=== PATIENT | male | born 1965 | race Caucasian/White ===

== ENCOUNTER 2021-03-23 03:18 | Emergency (ER) | payer OTHER ==
[2021-03-23 03:26] VITALS: RESP 18
[2021-03-23] MEDS ORDERED: HYDROmorphone 0.5 MG/0.5 ML SYRINGE IVP STA ×2 (03:52→06:42)
[2021-03-23] MEDS ORDERED: KETOROLAC 15 MG/ML 1 ML VIAL IVP STA (03:52)
[2021-03-23] MEDS ORDERED: ONDANSETRON 4 MG/2 ML VIAL IVP STA (03:52)
--- NOTE | 2021-03-23 03:54 | ED ---
Abdominal Pain HPI - General Chief Complaint: Abdominal Pain Stated Complaint: Abdominal pain Time Seen by Provider: 03/23/21 03:28 Source: patient Mode of arrival: ambulatory Limitations: no limitations - History of Present Illness MD Complaint: flank pain Onset/Timin -: hour(s) Location: R flank Radiation: RLQ Migration to: no migration Severity: severe Quality: sharp Consistency: colicky Improves With: nothing Worsens With: nothing Associated Symptoms: nausea, vomiting - Related Data Home Medications Medication Instructions Recorded Confirmed Ranitidine HCl [Zantac] 150 mg PO BID 10/29/15 11/20/15 Synthroid Unknown Dose 1 tab PO QAM 10/29/15 11/20/15 Loratadine [Claritin] 10 mg PO BID 11/17/15 11/20/15 Previous Rx's Medication Instructions Recorded HYDROcodone/APAP 5-325MG [Dixie 1 tab PO Q4HR PRN 3 Days #18 tab 03/23/21 5-325] Ondansetron Odt [Zofran ODT] 4 mg PO Q8HR PRN #10 tab 03/23/21 Tamsulosin [Flomax] 0.4 mg PO DAILY #14 cap 03/23/21 Allergies Allergy/AdvReac Type Severity Reaction Status Date / Time Milk Containing Products Allergy night Verified 03/23/21 03:26 sweats,runny nose and watery eyes monosodium glutamate Allergy runny nose Verified 03/23/21 03:26 and watery eyes Penicillins Allergy Unknown Verified 03/23/21 03:26 Review of Systems ROS Statement: Those systems with pertinent positive or pertinent negative responses have been documented in the HPI. ROS Other: All systems not noted in ROS Statement are negative. Constitutional: Denies: fever, chills Respiratory: Denies: cough, dyspnea Cardiovascular: Denies: chest pain, palpitations, edema Gastrointestinal: Reports: abdominal pain, nausea, vomiting. Denies: diarrhea, constipation, melena, hematochezia Genitourinary: Reports: frequency. Denies: urgency, dysuria, hematuria, testicular pain, testicular mass Musculoskeletal: Denies: back pain Skin: Denies: rash Neurological: Denies: headache, weakness, numbness Past Medical History Past Medical History: GERD/Reflux, Hyperlipidemia, Thyroid Disorder Additional Past Medical History / Comment(s): currently having difficulty on food and choking on piece of chicken causing bleeding and going into ER, seasonal allergies,kidney stones History of Any Multi-Drug Resistant Organisms: None Reported Past Surgical History: No Surgical Hx Reported Additional Past Surgical History / Comment(s): piece of steak removed from throat Additional Past Anesthesia/Blood Transfusion Reaction / Comment(s): never has had anesthesia Past Psychological History: No Psychological Hx Reported Smoking Status: Never smoker Past Alcohol Use History: None Reported Past Drug Use History: None Reported - Past Family History Father Additional Family Medical History / Comment(s): states "chokes on food too ,narrow throats run in the family" Mother Family Medical History: No Reported History Brother(s) Additional Family Medical History / Comment(s): "narrow throat too,but not as bad" General Exam Limitations: no limitations General appearance: alert, in no apparent distress Head exam: Present: atraumatic, normocephalic Eye exam: Present: normal appearance. Absent: scleral icterus, conjunctival injection Respiratory exam: Present: normal lung sounds bilaterally. Absent: respiratory distress, wheezes, rales, rhonchi, stridor Cardiovascular Exam: Present: regular rate, normal rhythm, normal heart sounds. Absent: systolic murmur, diastolic murmur, rubs, gallop GI/Abdominal exam: Present: soft. Absent: distended, tenderness, guarding, rebound, rigid, mass Extremities exam: Present: normal inspection, normal capillary refill. Absent: pedal edema, calf tenderness Back exam: Present: normal inspection. Absent: CVA tenderness (R), CVA tenderness (L) Neurological exam: Present: alert Skin exam: Present: warm, dry, intact, normal color. Absent: rash Course Vital Signs 03/23/21 03/23/21 03/23/21 03:22 03:25 07:02 Temperature 97.7 F 98.3 F Pulse Rate 122 H 74 Respiratory 18 18 Rate Blood Pressure 173/80 142/72 O2 Sat by Pulse 95 98 Oximetry Medical Decision Making - Lab Data Result diagrams: 03/23/21 04:10 03/23/21 04:10 Lab Results 03/23/21 03/23/21 03/23/21 Range/Units 04:10 04:10 04:10 WBC 7.8 (3.8-10.6) k/uL RBC 4.89 (4.30-5.90) m/uL Hgb 14.7 (13.0-17.5) gm/dL Hct 43.2 (39.0-53.0) % MCV 88.3 (80.0-100.0) fL MCH 30.1 (25.0-35.0) pg MCHC 34.1 (31.0-37.0) g/dL RDW 12.3 (11.5-15.5) % Plt Count 251 (150-450) k/uL MPV 7.9 Neutrophils % 73 % Lymphocytes % 17 % Monocytes % 6 % Eosinophils % 2 % Basophils % 1 % Neutrophils # 5.7 (1.3-7.7) k/uL Lymphocytes # 1.3 (1.0-4.8) k/uL Monocytes # 0.5 (0-1.0) k/uL Eosinophils # 0.2 (0-0.7) k/uL Basophils # 0.1 (0-0.2) k/uL Sodium 138 (137-145) mmol/L Potassium 3.8 (3.5-5.1) mmol/L Chloride 105 (98-107) mmol/L Carbon Dioxide 23 (22-30) mmol/L Anion Gap 10 mmol/L BUN 17 (9-20) mg/dL Creatinine 1.17 (0.66-1.25) mg/dL Est GFR (CKD-EPI)AfAm 80 (>60 ml/min/1.73 sqM) Est GFR (CKD-EPI)NonAf 69 (>60 ml/min/1.73 sqM) Glucose 174 H (74-99) mg/dL Plasma Lactic Acid Augusto (0.7-2.0) mmol/L Calcium 9.4 (8.4-10.2) mg/dL Total Bilirubin 0.5 (0.2-1.3) mg/dL AST 33 (17-59) U/L ALT 31 (4-49) U/L Alkaline Phosphatase 119 (38-126) U/L Total Protein 7.7 (6.3-8.2) g/dL Albumin 4.3 (3.5-5.0) g/dL Amylase 55 (30-110) U/L Lipase 89 (23-300) U/L Urine Color Yellow Urine Appearance Cloudy (Clear) Urine pH 5.0 (5.0-8.0) Ur Specific [place] 1.035 (1.001-1.035) Urine Protein 1+ H (Negative) Urine Glucose (UA) Negative (Negative) Urine Ketones Negative (Negative) Urine Blood Large H (Negative) Urine Nitrite Negative (Negative) Urine Bilirubin Negative (Negative) Urine Urobilinogen 2.0 (<2.0) mg/dL Ur Leukocyte Esterase Negative (Negative) Urine RBC 78 H (0-5) /hpf Urine WBC 3 (0-5) /hpf Ur Squamous Epith Cells 1 (0-4) /hpf Calcium Oxalate Crystal Many H (None) /hpf Urine Bacteria Rare H (None) /hpf Urine Mucus Many H (None) /hpf 03/23/21 Range/Units 04:10 WBC (3.8-10.6) k/uL RBC (4.30-5.90) m/uL Hgb (13.0-17.5) gm/dL Hct (39.0-53.0) % MCV (80.0-100.0) fL MCH (25.0-35.0) pg MCHC (31.0-37.0) g/dL RDW (11.5-15.5) % Plt Count (150-450) k/uL MPV Neutrophils % % Lymphocytes % % Monocytes % % Eosinophils % % Basophils % % Neutrophils # (1.3-7.7) k/uL Lymphocytes # (1.0-4.8) k/uL Monocytes # (0-1.0) k/uL Eosinophils # (0-0.7) k/uL Basophils # (0-0.2) k/uL Sodium (137-145) mmol/L Potassium (3.5-5.1) mmol/L Chloride (98-107) mmol/L Carbon Dioxide (22-30) mmol/L Anion Gap mmol/L BUN (9-20) mg/dL Creatinine (0.66-1.25) mg/dL Est GFR (CKD-EPI)AfAm (>60 ml/min/1.73 sqM) Est GFR (CKD-EPI)NonAf (>60 ml/min/1.73 sqM) Glucose (74-99) mg/dL Plasma Lactic Acid Augusto 2.0 (0.7-2.0) mmol/L Calcium (8.4-10.2) mg/dL Total Bilirubin (0.2-1.3) mg/dL AST (17-59) U/L ALT (4-49) U/L Alkaline Phosphatase (38-126) U/L Total Protein (6.3-8.2) g/dL Albumin (3.5-5.0) g/dL Amylase (30-110) U/L Lipase (23-300) U/L Urine Color Urine Appearance (Clear) Urine pH (5.0-8.0) Ur Specific [place] (1.001-1.035) Urine Protein (Negative) Urine Glucose (UA) (Negative) Urine Ketones (Negative) Urine Blood (Negative) Urine Nitrite (Negative) Urine Bilirubin (Negative) Urine Urobilinogen (<2.0) mg/dL Ur Leukocyte Esterase (Negative) Urine RBC (0-5) /hpf Urine WBC (0-5) /hpf Ur Squamous Epith Cells (0-4) /hpf Calcium Oxalate Crystal (None) /hpf Urine Bacteria (None) /hpf Urine Mucus (None) /hpf Disposition Clinical Impression: Kidney stone Disposition: HOME SELF-CARE Condition: Good Instructions (If sedation given, give patient instructions): Kidney Stones (ED) Prescriptions: Tamsulosin [Flomax] 0.4 mg PO DAILY #14 cap HYDROcodone/APAP 5-325MG [Dixie 5-325] 1 tab PO Q4HR PRN 3 Days #18 tab PRN Reason: Pain Ondansetron Odt [Zofran ODT] 4 mg PO Q8HR PRN #10 tab PRN Reason: Nausea Is patient prescribed a controlled substance at d/c from ED?: Yes Referrals: Vitaliy Bach MD [Primary Care Provider] - 1-2 days
[2021-03-23 04:27] LABS: Basophils # (A) 0.1 k/uL (0-0.2); Basophils % (A) 1 %; Eosinophils # (A) 0.2 k/uL (0-0.7); Eosinophils % (A) 2 %; HCT 43.2 % (39.0-53.0); HGB 14.7 gm/dL (13.0-17.5); Lymphocytes # (A) 1.3 k/uL (1.0-4.8); Lymphocytes % (A) 17 %; MCH 30.1 pg (25.0-35.0); MCHC 34.1 g/dL (31.0-37.0); MCV 88.3 fL (80.0-100.0); Mean Platelet Volume 7.9; Monocytes # (A) 0.5 k/uL (0-1.0); Monocytes % (A) 6 %; Neutrophils # (A) 5.7 k/uL (1.3-7.7); Neutrophils % (A) 73 %; Platelet Count 251 k/uL (150-450); RBC 4.89 m/uL (4.30-5.90); RDW 12.3 % (11.5-15.5); WBC 7.8 k/uL (3.8-10.6)
[2021-03-23 04:38] LABS: Albumin 4.3 g/dL (3.5-5.0); Calcium 9.4 mg/dL (8.4-10.2); Potassium 3.8 mmol/L (3.5-5.1); Total Bilirubin 0.5 mg/dL (0.2-1.3); Total Protein 7.7 g/dL (6.3-8.2)
[2021-03-23 04:45] LABS: Appearance,Urine Cloudy (Clear); Bacteria,Urine Rare /hpf; Bilirubin,Urine Negative (Negative); Blood,Urine Large (Negative); Calcium Oxalate Crystals,Urine Many /hpf; Color,Urine Yellow; Glucose,Urine (UA) Negative (Negative); Ketones,Urine Negative (Negative); Leukocyte Esterase,Urine Negative (Negative); Mucus,Urine Many /hpf; Nitrite,Urine Negative (Negative); Protein,Urine 1+ (Negative); RBC,Urine 78 /hpf (0-5); Specific Gravity,Urine 1.035 (1.001-1.035); Squamous Epithelial Cell,Urine 1 /hpf (0-4); WBC,Urine 3 /hpf (0-5)
--- NOTE | 2021-03-23 06:21 | CT ---
EXAMINATION TYPE: CT abdomen pelvis wo con DATE OF EXAM: 03/23/2021 COMPARISON: None HISTORY: right flank pain. known sharpnel in stomache from prev. injury CT DLP: 898.9 mGycm Automated exposure control for dose reduction was used. Lung bases are clear of consolidation. There is mild subsegmental atelectasis at the lung bases. Ther e is no pleural effusion. There is no pericardial effusion. Heart size is fairly normal. Liver spleen stomach pancreas appear intact. Bile ducts are not dilated. Gallbladder appears normal. There is no adrenal mass. Kidneys have normal size. There is bilateral hydronephrosis. This is more o n the right side. There is right-sided perinephric edema. There is mild right-sided hydroureter with 2 mm calculus at the ureterovesical junction. Left ureter is not dilated. There is no retroperitoneal adenopathy. Appendix is not clearly seen. There is no sign of thickened appendix. Bladder distends s moothly. There is no inguinal hernia. There is no free fluid in the pelvis. There are multiple large bowel diverticula. There is no diverticulitis. There is 3.8 cm cortical cyst lower pole right kidney. Lumbar vertebra have normal alignment. There i s no compression fracture. Posterior elements are intact. The bony pelvis is intact. The hip joints a re intact. IMPRESSION: Tiny obstructing calculus at the right ureterovesical junction with right-sided hydronephrosis and hy droureter. Appendix not seen. Sigmoid diverticulosis.
[2021-03-23 07:04] VITALS: BP 142/72; PULSE 74; TEMP 98.3
[2021-03-23] MEDS ORDERED: TAMSULOSIN 0.4 MG CAP.ER.24H PO STA (07:09)
== END 2021-03-23 07:47 | disposition home or self-care (01) ==
LOC: EC 03:18
DX: N20.0 Calculus of kidney (principal); K21.9 Gastro-esophageal reflux disease without esophagitis; E78.5 Hyperlipidemia, unspecified; E07.9 Disorder of thyroid, unspecified; Z88.0 Allergy status to penicillin
CPT/HCPCS: 36415; 74176; 80053; 81001; 82150; 83605; 83690; 85025; 96374; 96375; 96376; 99284

== ENCOUNTER → 2021-07-07 | Outpatient (CLI) | payer BC ==
[2021-07-07 11:27] LABS: Basophils # (A) 0.1 k/uL (0-0.2); Basophils % (A) 1 %; Eosinophils # (A) 0.5 k/uL (0-0.7); Eosinophils % (A) 8 %; HCT 41.2 % (39.0-53.0); HGB 14.2 gm/dL (13.0-17.5); Lymphocytes # (A) 2.9 k/uL (1.0-4.8); Lymphocytes % (A) 42 %; MCH 31.4 pg (25.0-35.0); MCHC 34.5 g/dL (31.0-37.0); Mean Platelet Volume 7.5; Monocytes # (A) 0.3 k/uL (0-1.0); Monocytes % (A) 4 %; Neutrophils # (A) 3.1 k/uL (1.3-7.7); Neutrophils % (A) 45 %; Platelet Count 266 k/uL (150-450); RBC 4.53 m/uL (4.30-5.90); RDW 12.4 % (11.5-15.5); WBC 6.9 k/uL (3.8-10.6)
[2021-07-07 11:36] LABS: Potassium 4.1 mmol/L (3.5-5.1)
== END | disposition home or self-care (01) ==
LOC: LABPAT 10:58
PROVIDERS: ATTEND Surgery
DX: Z01.812 Encounter for preprocedural laboratory examination (principal); I65.29 Occlusion and stenosis of unspecified carotid artery
CPT/HCPCS: 36415; 80051; 82565; 84520; 85025

== ENCOUNTER 2021-07-10 05:44 | Inpatient (IN) | payer BC, OTHER ==
[2021-07-09 09:19] VITALS: BMI 32.6
[~2021-07-10 05:44] MED LIST: LIDOCAINE 1% (10MG/ML) FOR IV START INTRADERMA PRN; ONDANSETRON 4 MG/2 ML VIAL IVP ONE
[2021-07-10] MEDS: LACTATED RINGERS 1,000 ML IV SCH ×3 (06:43→22:31)
[2021-07-10] MEDS ORDERED: DEXAMETHASONE SOD PHOSPHATE 4 MG/ML 1 ML VIAL IVP ONE (06:51)
[2021-07-10] MEDS ORDERED: MIDAZOLAM 2 MG/2 ML VIAL IVP ONE (06:58)
--- NOTE | 2021-07-10 07:19 | P.GSHP ---
History of Present Illness H&P Date: 07/10/21 Chief Complaint: carotid stenosis 56-year-old gentleman who presents to the hospital for elective right carotid endarterectomy secondary to right internal carotid artery stenosis. He was seen previously by his telemetry rn and followed with serial carotid Dopplers and was noted to have increased in velocities and therefore sent for CT angiogram which demonstrated greater than 75% stenosis of the right internal carotid artery. After discussion of options due to his age and focal area of stenosis as well as calcification it was determined to perform an open carotid endarterectomy. - Review of Systems All systems: negative (what is mentioned in the HPI and past medical history) Past Medical History Past Medical History: GERD/Reflux, Hyperlipidemia, Hypertension, Thyroid Disorder Additional Past Medical History / Comment(s): seasonal allergies,kidney stones, states toothache- denies infection., hx of esophageal dilation. History of Any Multi-Drug Resistant Organisms: None Reported Past Surgical History: No Surgical Hx Reported Additional Past Surgical History / Comment(s): EGD with steak removed from throat- and dilation. Past Anesthesia/Blood Transfusion Reactions: No Reported Reaction, Motion Sickness Additional Past Anesthesia/Blood Transfusion Reaction / Comment(s): never has had anesthesia Past Psychological History: No Psychological Hx Reported Smoking Status: Never smoker Past Alcohol Use History: Rare Past Drug Use History: None Reported - Past Family History Father Additional Family Medical History / Comment(s): states "chokes on food too,narrow throats run in the family" Mother Family Medical History: No Reported History Brother(s) Additional Family Medical History / Comment(s): "narrow throat too,but not as bad" Medications and Allergies Home Medications Medication Instructions Recorded Confirmed Type Loratadine [Claritin] 10 mg PO DAILY 11/17/15 07/10/21 History Acetaminophen Tab [Tylenol] 650 mg PO DIRECTED PRN 07/09/21 07/10/21 History Aspirin 81 mg PO DAILY 07/09/21 07/10/21 History Atenolol [Tenormin] 50 mg PO DAILY 07/09/21 07/10/21 History Atorvastatin Calcium [Lipitor] 20 mg PO HS 07/09/21 07/10/21 History Ibuprofen [Motrin Ib] 600 mg PO BID 07/09/21 07/10/21 History Levothyroxine Sodium [Synthroid] 50 mcg PO DAILY 07/09/21 07/10/21 History Losartan Potassium 50 mg PO DAILY 07/09/21 07/10/21 History Multivit-Min/Folic/Vit K/Lycop 1 each PO DAILY 07/09/21 07/10/21 History [Men's Multivitamin Tablet] Omeprazole [PriLOSEC] 20 mg PO AC-BRKFST 07/09/21 07/10/21 History amLODIPine BESYLATE [Norvasc] 2.5 mg PO HS 07/09/21 07/10/21 History Allergies Allergy/AdvReac Type Severity Reaction Status Date / Time Milk Containing Products Allergy night Verified 07/10/21 06:22 sweats,runny nose and watery eyes monosodium glutamate Allergy runny nose Verified 07/10/21 06:22 and watery eyes Surgical - Exam Vital Signs Temp Pulse Resp BP Pulse Ox 97.6 F 57 L 16 143/80 97 07/10/21 06:26 07/10/21 06:26 07/10/21 06:26 07/10/21 06:26 07/10/21 06:26 - General well developed, well nourished, no distress - Eyes PERRL - ENT normal pinna - Neck no masses, no bruits - Respiratory normal expansion - Cardiovascular Rhythm: regular - Abdomen Abdomen: non tender - Neurologic normal coordination, normal sensation - Musculoskeletal normal gait, normal posture - Psychiatric oriented to time, oriented to person, oriented to place, speech is normal Assessment and Plan Assessment: #1 right internal carotid artery asymptomatic stenosis >75% #2 obesity #3 hyperlipidemia Plan: To the OR for right carotid endarterectomy and patch angioplasty
[2021-07-10] MEDS ORDERED: PHENYLEPHRINE-0.9% NACL SYG 1,000 MCG/10 ML SYRINGE ONE (07:25)
[2021-07-10] MEDS ORDERED: PROPOFOL 10 MG/ML 20 ML VIAL IV ONE (07:25)
[2021-07-10] MEDS ORDERED: LIDOCAINE 1% INJ 10MG/ML (20 ML MDV) ONE (07:25)
[2021-07-10] MEDS ORDERED: SUCCINYLCHOLINE CHLORIDE VIAL 200 MG/10 ML VIAL IV ONE (07:25)
[2021-07-10] MEDS ORDERED: ePHEDrine 50 MG/ML 1 ML AMP ONE (07:25)
[2021-07-10] MEDS ORDERED: NEOSTIGMINE 1 MG/ML 10 ML VIAL ONE (07:25)
[2021-07-10] MEDS ORDERED: HEPARIN SODIUM,PORCINE 10,000 UNIT/ML 1 ML VIAL ONE (07:25)
[2021-07-10] MEDS ORDERED: fentaNYL (PF) 50 MCG/ML 2 ML AMP ONE (07:25)
[2021-07-10] MEDS ORDERED: GLYCOPYRROLATE 0.2 MG/ML 2 ML VIAL ONE (07:25)
[2021-07-10] MEDS ORDERED: NITROGLYCERIN-D5W PMX 50 MG/250 ML BOTTLE IV ONE (07:25)
[2021-07-10] MEDS ORDERED: ROCURONIUM 10 MG/ML (5 ML VIAL) IV ONE (07:25)
[2021-07-10] MEDS ORDERED: LACTATED RINGERS 1,000 ML IV ONE (07:45)
[2021-07-10] MEDS ORDERED: HEPARIN SODIUM (1,000 UNIT/ML) 2,000 UNIT in SODIUM CHLORIDE 0.9% 1,000 ML IRRIGATION ONE (07:54)
[2021-07-10] MEDS ORDERED: LIDOCAINE 1% INJ 10MG/ML (20 ML MDV) IV ONE (07:54)
[2021-07-10] MEDS ORDERED: ceFAZolin 2 GM in SODIUM CHLORIDE 0.9% 500 ML 500 ML IRRIGATION ONE (07:54)
[2021-07-10] MEDS ORDERED: GELATIN SPONGE,ABSORB (LARGE) 1 EACH SPONGE TOPICAL ONE (07:54)
[2021-07-10] MEDS ORDERED: THROMBIN (BOVINE) 5,000 UNIT VIAL TOPICAL ONE (07:54)
[2021-07-10] MEDS ORDERED: TRIMETHOBENZAMIDE 100 MG/ML 2 ML VIAL IM PRN (09:55)
[2021-07-10] MEDS ORDERED: MAG HYDROX/AL HYDROX/SIMETH 30 ML CUP PO PRN (09:55)
[2021-07-10] MEDS ORDERED: BENZOCAINE/MENTHOL LOZENG 1 EACH LOZENGE MUCOUS MEM PRN (09:55)
--- NOTE | 2021-07-10 09:55 | P.OP ---
Description of Procedure: Date of Procedure: 07-10-21 Preoperative Diagnosis: Right asymptomatic Internal carotid artery stenosis Postoperative Diagnosis: Same Procedure(s) Performed: Right carotid endarterectomy with patch angioplasty Anesthesia: ARSH Surgeon: Ajit Martinez Estimated Blood Loss (ml): 25 mL IV Fluids & Urine Output: See anesthesia documentation Pathology: Carotid plaque Condition: stable Disposition: PACU Indications for Procedure: 56-year-old gentleman with history of carotid stenosis presented originally to the office secondary to increased stenosis seen on ultrasound and then ultimately a CT angiogram was obtained of the neck which demonstrated greater than 75% stenosis. Discussion was had about possible options and patient presents today for open carotid endarterectomy with patch angioplasty. Description of Procedure: After written informed consent was obtained the patient all risks benefits and competitions were described the patient is brought to the operative suite and laid in a supine position. The area of the neck was prepped and draped in usual sterile fashion after appropriate anesthetic was performed per the an esthesiologist. A timeout was performed in normal fashion antibiotics were administered prior to incision. An oblique incision was then created just anterior to the sternocleidomastoid musculature with a 10 blade scalpel and dissection was carried down to the carotid sheath. The carotid sheath was then entered after facial vein was located and suture ligated in normal fashion. The common carotid, internal carotid, external carotid and superior thyroid arteries were located and dissected free in a meticulous fashion circumferentially and controlled with vessel loops. Attention was then placed to locating the vagus nerve as well as hypoglossal nerve which were both spared. Once controlled patient was administered heparin and followed with ACTs for appropriate heparinization. Once ACT was above 200 the proximal and distal aspects of the dissection were then controlled with vascular clamps. Arteriotomy was then created with 11 blade scalpel and extended with Jane Swanson scissors. Utilizing pressure tubing stump pressures were obtained and were 55. No shunt was required and endarterectomy was then performed with a Bixby and elevator. The plaque was then feathered at the distal aspect and the internal carotid artery and removed. The area was copiously irrigated with heparinized saline and all free debris was removed. A 7-0 Prolene suture was then placed to tack the distal aspect of the dissection at the internal carotid artery. A 0.8 x 8 cm bovine pericardial patch was then chosen and patch angioplasty was performed with 6-0 Prolene suture in a running fashion. Prior to last sutures being placed the inflow was released flushing any free debris out of the patch. This was reclamped and the internal carotid artery was released revealing good brisk flow and was once again reclamped. The external carotid and superior thyroid artery were then released followed by the common carotid artery to allow any free debris to be flushed into the external system. Final sutures were placed and secured. Internal carotid artery control was then released. Good pulsatile flow was noted through the patch and a Doppler was utilized demonstrating good brisk flow into the internal, external carotid arteries without any signs of obstruction. Hemostasis was then assured with Gelfoam and thrombin. A 10-[place] RAMESH drain was then placed in normal fashion and secured with 3-0 nylon suture. The incision was then closed in a multilayer fashion after hemostasis was assured. The skin was then cleansed and dressings were placed. Patient tolerated the procedure well and was following commands and moving all extremities. Patient was then sent to PACU for recovery.
[2021-07-10] MEDS ORDERED: ACETAMINOPHEN TAB 325 MG TAB PO PRN (09:57)
[2021-07-10] MEDS: HYDROmorphone 0.5 MG/0.5 ML SYRINGE IVP PRN ×4 (10:14→13:57)
[2021-07-10] MEDS: ACETAMINOPHEN TAB 325 MG TAB PO PRN ×2 (16:08→23:51)
[2021-07-10] MEDS: HEPARIN SODIUM,PORCINE/PF 5,000 UNIT/0.5 ML SYRINGE SQ SCH ×2 (17:01→23:52)
[2021-07-10] MEDS: IBUPROFEN 600 MG TAB PO SCH (20:39)
[2021-07-10] MEDS ORDERED: ATORVASTATIN 20 MG TAB PO SCH (21:00)
[2021-07-10] MEDS ORDERED: amLODIPine 2.5 MG TAB PO SCH (21:00)
[2021-07-11 04:09] VITALS: RESP 18; TEMP 98.1
[2021-07-11] MEDS: ACETAMINOPHEN TAB 325 MG TAB PO PRN (04:14)
[2021-07-11] MEDS ORDERED: LEVOTHYROXINE 50 MCG TAB PO SCH (06:30)
[2021-07-11] MEDS ORDERED: PANTOPRAZOLE 40 MG TABLET PO SCH (07:30)
[2021-07-11] MEDS: LACTATED RINGERS 1,000 ML IV SCH (08:42)
[2021-07-11] MEDS ORDERED: atenoloL 50 MG TAB PO SCH (09:00)
[2021-07-11] MEDS ORDERED: CLOPIDOGREL 75 MG TAB PO SCH (09:00)
[2021-07-11] MEDS ORDERED: LOSARTAN 50 MG TAB PO SCH (09:00)
[2021-07-11] MEDS ORDERED: LORATADINE 10 MG TAB PO SCH (09:00)
[2021-07-11] MEDS ORDERED: ASPIRIN 81 MG PO SCH (09:00)
[2021-07-11] MEDS: HEPARIN SODIUM,PORCINE/PF 5,000 UNIT/0.5 ML SYRINGE SQ SCH (09:09)
[2021-07-11 09:14] VITALS: BP 124/65; PULSE 62
[2021-07-11] MEDS: IBUPROFEN 600 MG TAB PO SCH (09:14)
--- NOTE | 2021-07-11 09:28 | P.DS ---
Providers Date of admission: 07/10/21 05:44 Expected date of discharge: 07/11/21 Attending physician: Ajit Martinez DO Consults: 07/10/21 09:34 Consult Physician Routine Consulting Provider: Bety Rodriguez Consult Reason/Comments: Medical Management Do you want consulting provider notified?: Yes 07/10/21 11:22 Consult Physician Routine Consulting Provider: Kevan Chawla Consult Reason/Comments: s/p carotid endartectomy, known to you Do you want consulting provider notified?: Yes Primary care physician: [facility] Hospital Course: 56-year-old male who presented to the hospital for elective right carotid endarterectomy secondary to right internal carotid artery stenosis. He is postop day #1 for right carotid endarterectomy with patch angioplasty. There we re no acute changes through the night. Vital signs have been stable. He's been bleeding. Tolerating his diet. He denies any focal deficits. Physical exam: General appearance: The patient is alert, oriented, appears in no acute distress. HET: Head is normocephalic and atraumatic. Pupils are equal and reactive. Neck: Supple without lymphadenopathy. Trachea midline. Right neck incision ahsan an dry and intact well approximated. RAMESH drain with approximately 10 mL of serosanguineous drainage. RAMESH drain removed. Heart: S1 S2. Regular rate and rhythm. Lungs: Clear to auscultation. No crackles or wheezes are heard. Abdomen: Soft, nontender, nondistended. Extremities: Normal skin color and turgor. No cyanosis, rash, ulceration, clubbing, or edema. Radial pulses +2 bilaterally. Neurological: No focal deficits. Strength and sensation are grossly intact. Assessment: 1. Postop day #1 for right carotid endarterectomy with patch angioplasty 2. Right asymptomatic ICA stenosis, 75% stenosis of right ICA 3. Hyperlipidemia 4. Hypertension Plan: 1. RAMESH drain removed 2. Increase atorvastatin to 40 mg daily 3. Continue aspirin 4. Start Plavix 75 mg daily 5. Patient may be discharged once cardiology has seen and cleared patient as well as once he's been up and ambulating. The impression and plan of care has been dictated as directed. Dr. Casanova I performed a history and examination of this patient, discussed the same with the dictator. I agree with the dictator's note ,documented as a scribe. Any additional findings or plans will be noted. Procedures: Right carotid endarterectomy with patch angioplasty Patient Condition at Discharge: Stable Plan - Discharge Summary Discharge Rx Participant: Yes New Discharge Prescriptions: New Atorvastatin [Lipitor] 40 mg PO HS #90 tab Clopidogrel [Plavix] 75 mg PO DAILY #30 tab Continue Loratadine [Claritin] 10 mg PO DAILY amLODIPine BESYLATE [Norvasc] 2.5 mg PO HS Atenolol [Tenormin] 50 mg PO DAILY Multivit-Min/Folic/Vit K/Lycop [Men's Multivitamin Tablet] 1 each PO DAILY Losartan Potassium 50 mg PO DAILY Aspirin 81 mg PO DAILY Ibuprofen [Motrin Ib] 600 mg PO BID Acetaminophen Tab [Tylenol] 650 mg PO DIRECTED PRN PRN Reason: Pain Omeprazole [PriLOSEC] 20 mg PO AC-BRKFST Levothyroxine Sodium [Synthroid] 50 mcg PO DAILY Discontinued Atorvastatin Calcium [Lipitor] 20 mg PO HS Discharge Medication List Loratadine [Claritin] 10 mg PO DAILY 11/17/15 [History] Acetaminophen Tab [Tylenol] 650 mg PO DIRECTED PRN 07/09/21 [History] Aspirin 81 mg PO DAILY 07/09/21 [History] Atenolol [Tenormin] 50 mg PO DAILY 07/09/21 [History] Ibuprofen [Motrin Ib] 600 mg PO BID 07/09/21 [History] Levothyroxine Sodium [Synthroid] 50 mcg PO DAILY 07/09/21 [History] Losartan Potassium 50 mg PO DAILY 07/09/21 [History] Multivit-Min/Folic/Vit K/Lycop [Men's Multivitamin Tablet] 1 each PO DAILY 07/09/21 [History] Omeprazole [PriLOSEC] 20 mg PO AC-BRKFST 07/09/21 [History] amLODIPine BESYLATE [Norvasc] 2.5 mg PO HS 07/09/21 [History] Atorvastatin [Lipitor] 40 mg PO HS #90 tab 07/11/21 [Rx] Clopidogrel [Plavix] 75 mg PO DAILY #30 tab 07/11/21 [Rx] Follow up Appointment(s)/Referral(s): Kevan Chawla MD [STAFF PHYSICIAN] - 2 Weeks Ajit Martinez DO [STAFF PHYSICIAN] - 1 Week Vitaliy Bach MD [Primary Care Provider] - 1-2 Days Patient Instructions/Handouts: Carotid Endarterectomy (DC) Activity/Diet/Wound Care/Special Instructions: No soaking or tub bathing for 1-2 weeks. May shower. No heavy lifting or strenuous activity until cleared by vascular surgeon Your a atorvastatin was increased to 40 mg daily Continue aspirin daily You will be started on Plavix 75 mg daily Continue all other current medications Discharge Disposition: HOME SELF-CARE
--- NOTE | 2021-07-11 11:03 | P.CRDCN ---
History of Present Illness History of present illness: HISTORY OF PRESENTING ILLNESS This is a pleasant 56-year-old male past medical history significant for hypertension, hypercholesterolemia, right internal carotid artery stenosis. He follows in the office with Dr. Chawla. We have been asked to see in consultation for status post right endartectomy, known to patient. Patient presented to the hospital on 07/10/21, for elective right carotid endarterectomy secondary to right internal carotid artery stenosis. Patient underwent right carotid endarterectomy with patch angioplasty with Dr. Martinez on 07/10/21. Patient seen and examined at bedside, no distress. He denies any chest pain, shortness of breath, lightheadedness, dizziness, palpitations. His vital signs are stable. Patient is currently maintained on amlodipine 2.5 mg nightly, aspirin 81 mg daily, atenolol 50 mg daily, atorvastatin 40mg nightly, Plavix 75mg daily, losartan 50mg daily. DIAGNOSTICS Most recent echocardiogram 05/02/2021 revealed EF 55%, mild to moderate mitral and mild tricuspid insufficiency, no pulmonary hypertension Most recent stress test Cardiolite in the office 05/15/2021 was negative for reversible ischemia Telemetry tracings indicate sinus mechanism Laboratory reviewed, covid-19 negative REVIEW OF SYSTEMS At the time of my exam: CONSTITUTIONAL: Denies fever or chills. CARDIOVASCULAR: Denies chest pain, shortness of breath, orthopnea, PND or palpitations. RESPIRATORY: Denies cough. GASTROINTESTINAL: Denies abdominal pain, diarrhea, constipation, nausea or vomiting. MUSCULOSKELETAL: Denies myalgias. NEUROLOGIC: Denies numbness, tingling, headacbe or weakness. ENDOCRINE: Denies fatigue, weight change, polydipsia or polyurina. GENITOURINARY: Denies burning, hematuria or urgency with micturation. HEMATOLOGIC: Denies history of anemia or bleeding. PHYSICAL EXAMINATION Blood pressure 124/65, heart rate 62, afebrile, oxygen saturation is 93% on room air CONSTITUTIONAL: No apparent distress. HEENT: Right neck incision clean dry and intact, covered with dressing. Head is normocephalic. Pupils are equal, round. Sclerae anicteric. Mucous membranes of the mouth are moist. No JVD. No carotid bruit. CHEST EXAMINATION: Lungs are clear to auscultation. No chest wall tenderness is noted on palpation or with deep breathing. HEART EXAMINATION: Regular rate and rhythm. S1, S2 heard. Systolic ejection murmur noted. ABDOMEN: Soft, nontender. Positive bowel sounds. EXTREMITIES: 2+ peripheral pulses, no lower extremity edema and no calf tenderness. NEUROLOGIC EXAMINATION: Patient is awake, alert and oriented x3. ASSESSMENT Status post right carotid endarterectomy with patch angioplasty on 07/10/21 Right asymptomatic ICA stenosis Hyperlipidemia Hypertension PLAN Agree with increasing atovastatin to 40mg daily Continue home cardiac medications. No further workup from cardiology perspective. Patient to follow up outpatient with Dr. Chawla. We'll sign off at this time. Please reconsult if needed. Nurse Practitioner note has been reviewed, I agree with a documented findings and plan of care. Patient was seen and examined. Past Medical History Past Medical History: GERD/Reflux, Hyperlipidemia, Hypertension, Thyroid Disorder Additional Past Medical History / Comment(s): seasonal allergies,kidney stones, states toothache- denies infection., hx of esophageal dilation. History of Any Multi-Drug Resistant Organisms: None Reported Past Surgical History: No Surgical Hx Reported Additional Past Surgical History / Comment(s): EGD with steak removed from throat- and dilation. Past Anesthesia/Blood Transfusion Reactions: No Reported Reaction, Motion Sickness Additional Past Anesthesia/Blood Transfusion Reaction / Comment(s): never has had anesthesia Past Psychological History: No Psychological Hx Reported Smoking Status: Never smoker Past Alcohol Use History: Rare Past Drug Use History: None Reported - Past Family History Father Additional Family Medical History / Comment(s): states "chokes on food too,narrow throats run in the family" Mother Family Medical History: No Reported History Brother(s) Additional Family Medical History / Comment(s): "narrow throat too,but not as bad" Medications and Allergies Home Medications Medication Instructions Recorded Confirmed Type Loratadine [Claritin] 10 mg PO DAILY 11/17/15 07/10/21 History Acetaminophen Tab [Tylenol] 650 mg PO DIRECTED PRN 07/09/21 07/10/21 History Aspirin 81 mg PO DAILY 07/09/21 07/10/21 History Atenolol [Tenormin] 50 mg PO DAILY 07/09/21 07/10/21 History Ibuprofen [Motrin Ib] 600 mg PO BID 07/09/21 07/10/21 History Levothyroxine Sodium [Synthroid] 50 mcg PO DAILY 07/09/21 07/10/21 History Losartan Potassium 50 mg PO DAILY 07/09/21 07/10/21 History Multivit-Min/Folic/Vit K/Lycop 1 each PO DAILY 07/09/21 07/10/21 History [Men's Multivitamin Tablet] Omeprazole [PriLOSEC] 20 mg PO AC-BRKFST 07/09/21 07/10/21 History amLODIPine BESYLATE [Norvasc] 2.5 mg PO HS 07/09/21 07/10/21 History Atorvastatin [Lipitor] 40 mg PO HS #90 tab 07/11/21 Rx Clopidogrel [Plavix] 75 mg PO DAILY #30 tab 07/11/21 Rx Allergies Allergy/AdvReac Type Severity Reaction Status Date / Time Milk Containing Products Allergy night Verified 07/10/21 06:22 sweats,runny nose and watery eyes monosodium glutamate Allergy runny nose Verified 07/10/21 06:22 and watery eyes Physical Exam Vitals: Vital Signs Temp Pulse Resp BP Pulse Ox 07/11/21 08:00 98.1 F 62 18 124/65 93 L 07/11/21 04:00 98.1 F 65 18 113/56 95 07/11/21 00:55 97.9 F 66 16 116/56 95 07/10/21 20:55 97.6 F 72 16 116/57 94 L 07/10/21 18:44 97.6 F 72 20 118/56 91 L 07/10/21 16:40 97.4 F L 58 L 20 115/57 95 07/10/21 14:40 97.4 F L 68 20 124/61 92 L 07/10/21 14:01 57 L 16 116/56 100 07/10/21 13:30 54 L 16 112/56 100 07/10/21 13:04 55 L 16 115/54 100 07/10/21 12:41 66 16 120/66 100 07/10/21 12:00 55 L 18 128/63 97 07/10/21 11:30 53 L 18 127/58 93 L 07/10/21 11:15 58 L 18 128/56 93 L 07/10/21 11:00 63 18 136/52 98 Intake and Output 07/10/21 07/11/21 07/11/21 22:59 06:59 14:59 Intake Total 720 Output Total 117 822 Balance 603 -822 Intake: Intake, IV Titration 320 Amount Lactated Ringers 1,000 ml 320 @ 80 mls/hr IV .[id number] [facility] Rx#:[id number] Oral 400 Output: Drainage 17 22 Right Neck 17 22 Urine 100 800 Other: Voiding Method Urinal Urinal # Voids 1 Results Current Medications Generic Name Dose Route Start Last Admin Trade Name Freq PRN Reason Stop Dose Admin Acetaminophen 650 mg 07/10/21 09:55 07/11/21 04:14 Acetaminophen Tab 325 Mg Tab PO 650 mg Q4HR PRN Administration Pain Al Hydroxide/Mg Hydroxide 30 ml 07/10/21 09:55 Mag Hydrox/Al Hydrox/Simeth 30 Ml Cup PO Q6HR PRN Indigestion Amlodipine Besylate 2.5 mg 07/10/21 21:00 07/10/21 20:39 Amlodipine 2.5 Mg Tab PO 2.5 mg HS TAYE Administration Aspirin 81 mg 07/11/21 09:00 07/11/21 09:15 Aspirin 81 Mg PO 81 mg DAILY TAYE Administration Atenolol 50 mg 07/11/21 09:00 07/11/21 09:14 Atenolol 50 Mg Tab PO 50 mg DAILY TAYE Administration Atorvastatin Calcium 40 mg 07/11/21 21:00 Atorvastatin 40 Mg Tab PO HS TAYE Benzocaine/Menthol 1 each 07/10/21 09:55 Benzocaine/Menthol Lozeng 1 Each Lozenge MUCOUS MEM Q2HR PRN Sore Throat Clopidogrel Bisulfate 75 mg 07/11/21 09:00 07/11/21 09:15 Clopidogrel 75 Mg Tab PO 75 mg DAILY TAYE Administration Heparin Sodium (Porcine) 5,000 unit 07/10/21 16:00 07/11/21 09:09 Heparin Sodium,Porcine/Pf 5,000 Unit/0.5 Ml Syringe SQ Not Given Q8HR TAYE Lactated Ringer's 1,000 mls @ 20 mls/hr 07/10/21 05:43 07/11/21 08:42 Lactated Ringers IV Not Given .Q24H TAYE Lactated Ringer's 1,000 mls @ 80 mls/hr 07/10/21 10:00 07/10/21 22:31 Lactated Ringers IV 80 mls/hr .[id number] TAYE Administration Ibuprofen 600 mg 07/10/21 21:00 07/11/21 09:14 Ibuprofen 600 Mg Tab PO 600 mg BID TAYE Administration Levothyroxine Sodium 50 mcg 07/11/21 06:30 07/11/21 06:14 Levothyroxine 50 Mcg Tab PO 50 mcg DAILY@0630 TAYE Administration Lidocaine HCl 0.1 ml 07/10/21 05:43 Lidocaine 1% (10mg/Ml) For Iv Start INTRADERMA PER PROTOCOL PRN IV Start Loratadine 10 mg 07/11/21 09:00 07/11/21 09:15 Loratadine 10 Mg Tab PO 10 mg DAILY TAYE Administration Losartan Potassium 50 mg 07/11/21 09:00 07/11/21 09:14 Losartan 50 Mg Tab PO 50 mg DAILY TAYE Administration Pantoprazole Sodium 40 mg 07/11/21 07:30 07/11/21 06:14 Pantoprazole 40 Mg Tablet PO 40 mg AC-BRKFST TAYE Administration Trimethobenzamide HCl 200 mg 07/10/21 09:55 Trimethobenzamide 100 Mg/Ml 2 Ml Vial IM Q4HR PRN Nausea And Vomiting Intake and Output 07/10/21 07/11/21 07/11/21 22:59 06:59 14:59 Intake Total 720 Output Total 117 822 Balance 603 -822 Intake: Intake, IV Titration 320 Amount Lactated Ringers 1,000 ml 320 @ 80 mls/hr IV .[id number] TAYE Rx#:[id number] Oral 400 Output: Drainage 17 22 Right Neck 17 22 Urine 100 800 Other: Voiding Method Urinal Urinal # Voids 1
--- NOTE | 2021-07-11 16:44 | P.CONS ---
History of Present Illness - Reason for Consult Consult date: 07/11/21 - History of Present Illness HISTORY OF PRESENT ILLNESS This is a 56-year-old male patient of Dr. Vitaliy Bach with past medical history of hypertension, hyperlipidemia, hypothyroidism, right internal coronary artery stenosis. Patient has been brought in the hospital on the care of Dr. Martinez status post right carotid endarterectomy with patch angioplasty. RAMESH drain was removed this morning. Vascular increased atorvastatin 40 mg daily and recommend continuing aspirin, start Plavix. Patient is prepared for discharge home. He denies any postprocedure complications, no lightheadedness or dizziness, no chest pain or shortness of breath. Patient's son is here to drive him home. REVIEW OF SYSTEMS Constitutional: No fever, no chills, no night sweats. No weight change. No weakness, fatigue or lethargy. No daytime sleepiness. EENT: No headache. No blurred vision or double vision, no loss of vision. No loss of Hearing, no ringing in the ears, no dizziness. No nasal drainage or congestion. No epistaxis. No sore throat. Lungs: No shortness of breath, cough, no sputum production. No wheezing. Cardiovascular: No chest pain, no lower extremity edema. No palpitations. No paroxysmal nocturnal dyspnea. No orthopnea. No lightheadedness or dizziness. No syncopal episodes. Abdominal: No abdominal pain. No nausea, vomiting. No diarrhea. No consti pation. No bloody or tarry stools. No loss of appetite. Genitourinary: No dysuria, increased frequency, urgency. No urinary retention. Musculoskeletal: No myalgias. No muscle weakness, no gait dysfunction, no frequent falls. No back pain. No neck pain. Integumentary: No wounds, no lesions. No rash or pruritus. No unusual bruising. No change in hair or nails. Neurologic: No aphasia. No facial droop. No change in mentation. No head injury. No headache. No paralysis. No paresthesia. Psychiatric: No depression. No anxiety. No mood swings. Endocrine: No abnormal blood sugars. No weight change. No excessive sweating or thirst. No cold intolerance. SOCIAL HISTORY Patient is a lifelong nonsmoker, he drinks alcohol rarely. He does not have a CPAP, nebulizer oxygen at home. He lives alone. FAMILY HISTORY Mother at age 90 from stomach issues. Father at age 92 from old age. Patient has 1 brother that passed from complications from alcohol abuse. Patient has 2 sisters with no major medical problems. He has one son with no major medical problems. PHYSICAL EXAMINATION Gen: This is a 56-year-old male. He is resting of Atrovent appears to be comfortable and in no acute distress. HEENT: Head is atraumatic, normocephalic. Pupils equal, round. Sclerae is anicteric. NECK: Supple. No JVD. No lymphadenopathy. No thyromegaly. Dressing in place to the right anterior neck area. LUNGS: Clear to auscultation. No wheezes or rhonchi. No intercostal retractions. HEART: Regular rate and rhythm. No murmur. ABDOMEN: Soft. Bowel sounds are present. No masses. No tenderness. EXTREMITIES: No pedal edema. No calf tenderness. NEUROLOGICAL: Patient is awake, alert and oriented x3. Cranial nerves 2 through 12 are grossly intact. ASSESSMENT AND PLAN 1. Right ICA stenosis 75% status post right carotid endarterectomy with patch angioplasty, 07/10. Continue aspirin, Plavix, atorvastatin. Patient is cleared for discharge home. 2. Hypertension. Continue amlodipine 2.5 mg at bedtime, losartan 50 mg daily, atenolol 50 mg daily. 3. Hyperlipidemia. Continue atorvastatin increased to 40 mg daily. 4. Hypothyroidism. Continue levothyroxine 50 g daily. 5. Gastroesophageal reflux disease. Continue omeprazole 20 mg with breakfast. DISCHARGE PLAN Home. Impression and plan of care have been directed as dictated by the signing physician. Batsheva Sanchez nurse practitioner acting as scribe for signing physician. Past Medical History Past Medical History: GERD/Reflux, Hyperlipidemia, Hypertension, Thyroid Disorder Additional Past Medical History / Comment(s): seasonal allergies,kidney stones, states toothache- denies infection., hx of esophageal dilation. History of Any Multi-Drug Resistant Organisms: None Reported Past Surgical History: No Surgical Hx Reported Additional Past Surgical History / Comment(s): EGD with steak removed from throat- and dilation. Past Anesthesia/Blood Transfusion Reactions: No Reported Reaction, Motion Sickness Additional Past Anesthesia/Blood Transfusion Reaction / Comm: never has had anesthesia Past Psychological History: No Psychological Hx Reported Smoking Status: Never smoker Past Alcohol Use History: Rare Past Drug Use History: None Reported - Past Family History Father Additional Family Medical History / Comment(s): states "chokes on food too,narrow throats run in the family" Mother Family Medical History: No Reported History Brother(s) Additional Family Medical History / Comment(s): "narrow throat too,but not as bad" Medications and Allergies Home Medications Medication Instructions Recorded Confirmed Type Loratadine [Claritin] 10 mg PO DAILY 11/17/15 07/10/21 History Acetaminophen Tab [Tylenol] 650 mg PO DIRECTED PRN 07/09/21 07/10/21 History Aspirin 81 mg PO DAILY 07/09/21 07/10/21 History Atenolol [Tenormin] 50 mg PO DAILY 07/09/21 07/10/21 History Ibuprofen [Motrin Ib] 600 mg PO BID 07/09/21 07/10/21 History Levothyroxine Sodium [Synthroid] 50 mcg PO DAILY 07/09/21 07/10/21 History Losartan Potassium 50 mg PO DAILY 07/09/21 07/10/21 History Multivit-Min/Folic/Vit K/Lycop 1 each PO DAILY 07/09/21 07/10/21 History [Men's Multivitamin Tablet] Omeprazole [PriLOSEC] 20 mg PO AC-BRKFST 07/09/21 07/10/21 History amLODIPine BESYLATE [Norvasc] 2.5 mg PO HS 07/09/21 07/10/21 History Atorvastatin [Lipitor] 40 mg PO HS #90 tab 07/11/21 Rx Clopidogrel [Plavix] 75 mg PO DAILY #30 tab 07/11/21 Rx Allergies Allergy/AdvReac Type Severity Reaction Status Date / Time Milk Containing Products Allergy night Verified 07/10/21 06:22 sweats,runny nose and watery eyes monosodium glutamate Allergy runny nose Verified 07/10/21 06:22 and watery eyes Physical Exam Vitals: Vital Signs Temp Pulse Resp BP Pulse Ox 07/11/21 08:00 98.1 F 62 18 124/65 93 L 07/11/21 04:00 98.1 F 65 18 113/56 95 07/11/21 00:55 97.9 F 66 16 116/56 95 07/10/21 20:55 97.6 F 72 16 116/57 94 L 07/10/21 18:44 97.6 F 72 20 118/56 91 L 07/10/21 16:40 97.4 F L 58 L 20 115/57 95 07/10/21 14:40 97.4 F L 68 20 124/61 92 L 07/10/21 14:01 57 L 16 116/56 100 07/10/21 13:30 54 L 16 112/56 100 07/10/21 13:04 55 L 16 115/54 100 07/10/21 12:41 66 16 120/66 100 07/10/21 12:00 55 L 18 128/63 97 07/10/21 11:30 53 L 18 127/58 93 L 07/10/21 11:15 58 L 18 128/56 93 L 07/10/21 11:00 63 18 136/52 98 07/10/21 10:45 61 18 141/54 98 07/10/21 10:30 54 L 18 135/57 98 Intake and Output 07/10/21 07/11/21 07/11/21 22:59 06:59 14:59 Intake Total 720 Output Total 117 822 Balance 603 -822 Intake: Intake, IV Titration 320 Amount Lactated Ringers 1,000 ml 320 @ 80 mls/hr IV .[id number] [id number] Rx#:[id number] Oral 400 Output: Drainage 17 22 Right Neck 17 22 Urine 100 800 Other: Voiding Method Urinal Urinal # Voids 1
[2021-07-11] MEDS ORDERED: ATORVASTATIN 40 MG TAB PO SCH (21:00)
== END 2021-07-11 11:22 | disposition home or self-care (01) | DRG 27 ==
LOC: 2ORMAIN 05:44 → 3SCARD 14:08
PROVIDERS: ADMIT Surgery; ATTEND Surgery
PROC: 03UK3JZ Supplement Right Internal Carotid Artery with Synthetic Substitute, Percutaneous Approach (ICD-10-PCS; 2021-07-10)
PROC: 03CK3ZZ Extirpation of Matter from Right Internal Carotid Artery, Percutaneous Approach (ICD-10-PCS; principal; 2021-07-10 07:30)
DX: I65.21 Occlusion and stenosis of right carotid artery (principal); Z20.822 Contact with and (suspected) exposure to COVID-19; E03.9 Hypothyroidism, unspecified; E66.9 Obesity, unspecified; I08.1 Rheumatic disorders of both mitral and tricuspid valves; Z68.32 Body mass index [BMI] 32.0-32.9, adult; I25.10 Atherosclerotic heart disease of native coronary artery without angina pectoris; E78.00 Pure hypercholesterolemia, unspecified; E78.5 Hyperlipidemia, unspecified; I10 Essential (primary) hypertension; K21.9 Gastro-esophageal reflux disease without esophagitis; Z79.02 Long term (current) use of antithrombotics/antiplatelets; Z79.82 Long term (current) use of aspirin; Z79.890 Hormone replacement therapy; Z79.899 Other long term (current) drug therapy; Z87.442 Personal history of urinary calculi; Z88.8 Allergy status to other drugs, medicaments and biological substances; Z91.011 Allergy to milk products; Z87.19 Personal history of other diseases of the digestive system
CPT/HCPCS: 86850; 86900; 86901; 87635; 88304; 88305